=== PATIENT | male | born 1945 | race Caucasian/White ===

== ENCOUNTER 2023-01-24 17:04 | Emergency (ER) | payer MEDICARE, OTHER ==
[~2023-01-24] VITALS: Ht 172.7 cm; Wt 102.1 kg
[2023-01-24] MEDS: IV NS 0.9% 1,000 ML IV SCH ×2 (00:39→22:58)
[2023-01-24] MEDS ORDERED: ACETAMINOPHEN 325 MG TABLET PO ONE (17:30)
[2023-01-24] MEDS ORDERED: IV NS 0.9% 1,000 ML BAG IV ONE (17:30)
[2023-01-24] MEDS ORDERED: ACETAMINOPHEN 325 MG TABLET ONE (17:56)
--- NOTE | 2023-01-24 18:02 | NUR ---
ADDENDUM: Intravenous End Time Documentation: Normal saline 1 liter (IV-WO) : start time: 1801 ; end time: 1904 : IV site: [facility] PIV # 20 Port # 1 Cefepime 1 gram in D5W 50 ml IVPB start time: 1948 ; end time: 2018 : IV site: [facility] PIV # 20 Port # 1
--- NOTE | 2023-01-24 18:09 | NUR ---
PT IN BED 12 A/O X4 BREATHING UNLABORED ON ROOM AIR O2SAT 98%. C/O CHEST PAIN 10/ AND NEAR SYNCOPE. NO CARDIAC Hx ACCORDING TO PT DOES ENDORSE ASTHMA. CONNECTED TO BEDSIDE MONITOR O2 AND BP, BED LOCKED IN LOWEST POSTION, SIDE RAILS UP, HIGH FOLWLERS.
--- NOTE | 2023-01-24 18:11 | NUR ---
20G RAC BLOOD DRAWN AND SENT TO LAB.
[2023-01-24 18:14] LABS: BASOPHILS # (AUTO) 1.2 K/uL (0.0-0.2); BASOPHILS % (AUTO) 1.1 % (0.0-2.0); EOSINOPHILS % (AUTO) 0.3 % (0.0-6.0); LYMPHOCYTES # (AUTO) 3.1 K/uL (0.8-4.8); LYMPHOCYTES % (AUTO) 2.8 % (20.0-44.0); MEAN CORPUSCULAR HGB CONC 31 g/dl (31.0-36.0); MEAN CORPUSCULAR VOLUME 106 fL (80-96); MONOCYTES # (AUTO) 104.9 K/uL (0.1-1.30); MONOCYTES % (AUTO) 94.8 % (2.0-12.0); NEUTROPHILS # (AUTO) 1.1 K/uL (1.8-8.9)
[2023-01-24 18:30] LABS: ALANINE AMINOTRANSFERASE 32 U/L (12-78); ALBUMIN 3.5 g/dL (3.4-5.0); ALKALINE PHOSPHATASE 175 U/L (46-116); ASPARTATE AMINOTRANSFERASE 23 U/L (15-37); BILIRUBIN,DIRECT 0.3 mg/dL (0.0-0.2); BILIRUBIN,TOTAL 0.6 mg/dL (0.2-1.0); CALCIUM, SERUM 9.1 mg/dL (8.5-10.1); CARBON DIOXIDE 27 mmol/L (21-32); CHLORIDE 104 mmol/L (98-107); CREATININE 2.1 mg/dL (0.6-1.3); GLUCOSE 141 mg/dL (74-106); SODIUM SERUM 140 mmol/L (136-145); TOTAL PROTEIN, SERUM 6.5 g/dL (6.4-8.2); UREA NITROGEN, BLOOD 51 mg/dL (7-18)
[2023-01-24 18:32] LABS: D-DIMER 1.48 mg/L(FEU (0.17-0.50)
[2023-01-24 18:38] LABS: HEMATOCRIT 18 % (39-51); HEMOGLOBIN 5.5 g/dL (13.5-17.5); PLATELET COUNT (AUTO) 31 K/uL (150-450); RED BLOOD CELL COUNT(AUTO) 1.69 MIL/uL (4.5-6.0); WHITE BLOOD COUNT (AUTO) 110.6 K/uL (4.3-11.0)
[2023-01-24 18:40] LABS: POTASSIUM 2.8 mmol/L (3.5-5.1)
[2023-01-24] MEDS ORDERED: ALLO100T PO (18:46)
[2023-01-24] MEDS ORDERED: ATOR10TA PO (18:46)
[2023-01-24] MEDS ORDERED: PENT400T17 PO (18:46)
[2023-01-24] MEDS ORDERED: SUMA25TA10 PO (18:46)
[2023-01-24] MEDS ORDERED: HYDR100T27 PO (18:46)
[2023-01-24] MEDS ORDERED: OXYB-58 PO (18:47)
[2023-01-24] MEDS ORDERED: DIPH-1062 PO (18:47)
[2023-01-24] MEDS ORDERED: CLON0.1T PO (18:47)
[2023-01-24] MEDS ORDERED: SENN-261 PO (18:47)
[2023-01-24] MEDS ORDERED: LORA-259 PO (18:47)
[2023-01-24] MEDS ORDERED: ACET1TAB23 PO (18:47)
[2023-01-24] MEDS ORDERED: ALBU18HF2 IH (18:47)
[2023-01-24] MEDS ORDERED: TRAM50TA2 PO (18:47)
[2023-01-24] MEDS ORDERED: BIMA2.5D5 EACHEYE (18:47)
[2023-01-24] MEDS ORDERED: DICL100G34 TP (18:47)
[2023-01-24] MEDS ORDERED: TAMS-12 PO (18:47)
[2023-01-24] MEDS ORDERED: POLY17PO4 PO (18:47)
[2023-01-24] MEDS ORDERED: METO25TA4 PO (18:47)
[2023-01-24] MEDS ORDERED: FINA5TAB11 PO (18:47)
[2023-01-24] MEDS ORDERED: HYDR-3980 PO (18:47)
[2023-01-24] MEDS ORDERED: CEFEPIME 2 GM in IV D5W 100 ML IV STA (19:03)
[2023-01-24] MEDS ORDERED: POTASSIUM CHLORIDE 20 MEQ TAB.PRT.SR PO ONE ×2 (19:16→19:30)
[2023-01-24] MEDS ORDERED: CEFTRIAXONE 1GM BAG (ER ONLY) 1 GM/50 ML PIGGYBACK IV ONE (19:30)
[2023-01-24 19:32] LABS: PHOSPHORUS 3.4 mg/dL (2.5-4.9); URIC ACID 15.5 mg/dL (2.6-7.2)
--- NOTE | 2023-01-24 20:01 | NUR ---
COVID SWAB COLLECTED AND SENT TO LAB
[2023-01-24 20:11] LABS: LYMPHOCYTES % (MANUAL) 8 % (16-48); MONOCYTES % (MANUAL) 91 % (0-11.0); NEUTROPHILS % (MANUAL) 1 (42-76)
--- NOTE | 2023-01-24 20:24 | NUR ---
DR. BRAUN PAGED, NO ANSWER. LEFT A MESSAGE WILL TRY AGAIN AT A LATER TIME.
--- NOTE | 2023-01-24 20:34 | NUR ---
BLOOD BANK CALLED FOR [facility]
--- NOTE | 2023-01-24 21:53 | NUR ---
SPOKE TO CARLA AT [facility], [place]. CLINICALS WILL BE FAXED OVER AND HE WILL TRY TO GET US PLACEMENT AT THEIR FACILITY FAX # [phone]
--- NOTE | 2023-01-24 22:19 | NUR ---
PATIENT ACCEPTED TO [facility] WE WILL BE NOTIFIED WHENEVER A BED IS FOUND. PT IS ACCEPTED UNDER [facility] NOE. ISMAEL LOMAX WILL FIND A TELE BED FOR THE PATIENT #[phone] TO FOLLOW UP FOR AN UPDATE ON THE BED, CALL AFTER 11PM.
[2023-01-24] MEDS ORDERED: HYDROXYUREA 500 MG CAPSULE PO SCH (22:30)
[2023-01-24] MEDS ORDERED: ALLOPURINOL 100 MG TABLET PO SCH (22:30)
[2023-01-24 23:17] LABS: CALCIUM, SERUM 8.6 mg/dL (8.5-10.1); CARBON DIOXIDE 24 mmol/L (21-32); CHLORIDE 106 mmol/L (98-107); GLUCOSE 158 mg/dL (74-106); SODIUM SERUM 140 mmol/L (136-145); UREA NITROGEN, BLOOD 52 mg/dL (7-18)
[2023-01-24 23:20] LABS: PHOSPHORUS 3.5 mg/dL (2.5-4.9)
--- NOTE | 2023-01-24 23:35 | NUR ---
RECIEVED HANDOFF FOR PT, [facility] RUYNNING AT 175ML/HR. PT RESTING COMOFRTABLY RR EVEN AND UNLABORED. CALL LIGHT IN REACH.
--- NOTE | 2023-01-25 00:25 | NUR ---
[facility] INFUSION COMPLETED WITHOUT S/S OF TRANSFUSUION REAXCTION, TOLERATED WELL.
--- NOTE | 2023-01-25 00:39 | NUR ---
ADDENDUM: Intravenous End Time Documentation: Normal saline 1 liter (IV-WO) : start time: 38 ; end time: 138: IV site:[facility] PIV # 20 Port # 1
--- NOTE | 2023-01-25 01:42 | NUR ---
Patient does not wish to proceed with medical care recommended by Dr. Spear. Patient given information related to possible complications, up to and including , which could occur as a result of leaving the hospital at this time. Patient verbalizes understanding of risks involved due to leaving against medical advice. Patient has signed AMA form. Picked up by son.
[2023-01-25 01:57] VITALS: BP 126/56
== END 2023-01-25 01:58 | disposition left against medical advice (07) ==
LOC: ER 17:07
DX: C92.00 Acute myeloblastic leukemia, not having achieved remission (principal); R42 Dizziness and giddiness; R07.89 Other chest pain; I10 Essential (primary) hypertension; Z79.899 Other long term (current) drug therapy; Z20.822 Contact with and (suspected) exposure to COVID-19
CPT/HCPCS: 99291; 96365; 96361 ×2; 36430; 93005; 71045; 85025; 80048 ×2; 87040 ×2; 80076; 85378; 84100 ×2; 85007; 84550 ×2; 36415; 84484; 85730; 87081; 86850; 87426; 86922; J7060; J7030 ×2; J7040; J0692; A4223; C9803; P9016